=== PATIENT | female | born 1990 | race Caucasian/White ===

== ENCOUNTER 2022-03-15 08:08 | Inpatient (IN) | payer OTHER ==
[~2022-03-15] VITALS: Ht 157.5 cm; Wt 47.2 kg
[2022-03-15] MEDS ORDERED: PRENATAL CAPLE1 EAC1 PO (08:18)
[2022-03-16] MEDS ORDERED: FUSION PLUS CA1 EACH (08:32)
== END 2022-03-17 13:41 | disposition home or self-care (01) | DRG 768 ==
LOC: LDR 08:08 → OB/GYN 18:25 → SURG-SUITE 03-16 09:52
PROVIDERS: ADMIT Specialist; ATTEND Specialist
PROC: 10E0XZZ Delivery of Products of Conception, External Approach (ICD-10-PCS; principal; 2022-03-15)
PROC: 0DQR0ZZ Repair Anal Sphincter, Open Approach (ICD-10-PCS; 2022-03-15)
PROC: 4A1HXCZ Monitoring of Products of Conception, Cardiac Rate, External Approach (ICD-10-PCS; 2022-03-15)
DX: O70.21 Third degree perineal laceration during delivery, IIIa (principal); Z37.0 Single live birth; Z3A.37 37 weeks gestation of pregnancy; Z20.822 Contact with and (suspected) exposure to COVID-19